=== PATIENT | male | born 1970 ===

== ENCOUNTER 2018-03-20 21:07 | Observation (INO) | payer OTHER ==
[2018-03-20] MEDS ORDERED: Aspirin 325 mg EC Tablets PO STA ×2 (21:37→23:55)
--- NOTE | 2018-03-20 21:37 | C.PDOC ---
History Of Present Illness Patient presents to the ER with a complaint of chest pain, left arm pain, and dizziness that began approximately at 1700 at while at work. Patient reports the pain is dull, aching, pressure, tightness; patient states the pain eased a bit but then he felt he was going to pass out and got diaphoretic which prompted visit. Denies fever, chills, nausea, or vomiting. Time Seen by Provider: 03/20/18 21:36 Chief Complaint (Nursing): Chest Pain History Per: Patient History/Exam Limitations: no limitations Onset/Duration Of Symptoms: Hrs Current Symptoms Are (Timing): Still Present Severity: Moderate Pain Scale Rating Of: 4 Quality: Dull, Aching, Tightness, Pressure Associated Symptoms: Diaphoresis, Other (Left arm pain). denies: Nausea, Dyspnea, Syncope Modifying Factors: None Exacerbating Factors: None Alleviating Factors: None Recent travel outside of the [place]: No Additional History Per: Family Past Medical History Reviewed: Historical Data, Nursing Documentation, Vital Signs Vital Signs: Last Vital Signs Temp 98.5 F 03/20/18 21:12 Pulse 69 03/20/18 21:12 Resp 12 03/20/18 21:12 BP 129/85 03/20/18 21:12 Pulse Ox 100 03/20/18 21:59 - Medical History PMH: Asthma Family History: States: No Known Family Hx - Social History Hx Alcohol Use: No (former drinker) Hx Substance Use: Yes Review Of Systems Constitutional: Positive for: Sweats. Negative for: Fever, Chills Cardiovascular: Positive for: Chest Pain Respiratory: Negative for: Shortness of Breath Gastrointestinal: Negative for: Nausea, Vomiting Musculoskeletal: Positive for: Arm Pain (Left) Skin: Negative for: Rash Neurological: Positive for: Dizziness Psych: Negative for: Anxiety Physical Exam - Physical Exam Appears: Non-toxic Skin: Warm, Dry Head: Normacephalic Eye(s): bilateral: Normal Inspection Oral Mucosa: Moist Neck: Supple Chest: Symmetrical, No Tenderness Cardiovascular: Rhythm Regular Respiratory: No Rales, No Rhonchi, No Wheezing Gastrointestinal/Abdominal: Soft, No Tenderness Back: Normal Inspection Extremity: Normal ROM Extremity: Bilateral: Atraumatic Pulses: Left Dorsalis Pedis: Normal, Right Dorsalis Pedis: Normal Neurological/Psych: Oriented x3 Gait: Steady ED Course And Treatment - Laboratory Results Result Diagrams: 03/20/18 21:41 03/20/18 21:41 ECG: Interpreted By Me, Viewed By Me ECG Rhythm: Sinus Rhythm (61), Nonspecific Changes O2 Sat by Pulse Oximetry: 100 (Room air) Pulse Ox Interpretation: Normal Progress Note: EKG, blood work, and CXR ordered. Aspirin administered. Disposition Discussed With Dr.: Marie Peacock Comment: accepted the pt on his service and took over the care at 11:43PM Doctor Will See Patient In The: Hospital Counseled Patient/Family Regarding: Studies Performed, Diagnosis - Disposition Disposition: HOSPITALIZED Disposition Time: 21:37 Condition: FAIR Forms: [employer] ([place]) - POA Present On Arrival: None - Clinical Impression Clinical Impression: Chest pain - Scribe Statement The provider has reviewed the documentation as recorded by the Scribe [place] All medical record entries made by the Scribe were at my direction and personally dictated by me. I have reviewed the chart and agree that the record accurately reflects my personal performance of the history, physical exam, medical decision making, and the department course for this patient. I have also personally directed, reviewed, and agree with the discharge instructions and disposition. Decision To Admit - Pt Status Changed To: Hospital Disposition Of: Observation - . Bed Request Type: Telemetry Admitting Physician: Marie Peacock Patient Diagnosis: Chest pain
[2018-03-20 21:47] LABS: BASO # 0.1 K/uL (0.0-0.2); BASO % 1.1 % (0.0-2.0); EOS # 0.1 K/uL (0.0-0.7); EOS % 1.4 % (0.0-4.0); HEMOGLOBIN 14.8 g/dL (12.0-18.0); LYMPH # 2.9 K/uL (1.0-4.3); LYMPH % 40.9 % (20.0-40.0); MEAN CELL VOLUME 90.1 fL (80.0-94.0); MEAN CORPUSCULAR HEMOGLOBIN 30.8 pg (27.0-31.0); MEAN CORPUSCULAR HGB CONC 34.1 g/dL (33.0-37.0); MEAN PLATELET VOLUME 7.5 fL (7.2-11.7); MONO # 0.3 K/uL (0.0-0.8); MONO % 3.8 % (0.0-10.0); NEUT # 3.8 K/uL (1.8-7.0); NEUT % 52.8 % (50.0-75.0); NRBC % 0.1 % (0.0-2.0); RBC 4.81 Mil/uL (4.40-5.90); RED CELL DISTRIBUTION WIDTH 12.2 % (11.5-14.5); WHITE BLOOD COUNT 7.1 K/uL (4.8-10.8)
[2018-03-20 21:56] LABS: INR 1.1
[2018-03-20 21:58] LABS: ALB/GLOB RATIO 1.2 (1.0-2.1); ALBUMIN 4.2 g/dL (3.5-5.0); ALT/SGPT 35 U/L (21-72); AST/SGOT 30 U/L (17-59); BLOOD UREA NITROGEN 19 mg/dL (9-20); CALCIUM 9.7 mg/dl (8.6-10.4); GFR AFRICAN-AMERICAN > 60; GFR NON-AFRICAN AMERICAN > 60
[2018-03-20] MEDS ORDERED: Aspirin 325 mg EC Tablets PO ONE (22:02)
[2018-03-20] MEDS ORDERED: Enoxaparin 40 mg Syringe SC ONE (23:55)
[2018-03-21 00:25] LABS: SQUAMOUS EPITHIAL < 1 /hpf (0-5); URINE BILIRUBIN NEGATIVE (NEGATIVE); URINE BLOOD 1+ (NEGATIVE); URINE CLARITY Clear (Clear); URINE COLOR Yellow (YELLOW); URINE GLUCOSE (UA) NORMAL (Normal); URINE LEUKOCYTE ESTERASE NEG Leu/uL (Negative); URINE PROTEIN NEGATIVE (NEGATIVE); URINE UROBILINOGEN NORMAL mg/dL (0.2-1.0)
[2018-03-21 00:43] LABS: BARBITURATES, UR NEGATIVE (NEGATIVE); BENZODIAZEPINES, UR NEGATIVE (NEGATIVE); OPIATES, UR NEGATIVE (NEGATIVE); PHENCYCLIDINE, UR NEGATIVE (NEGATIVE)
[2018-03-21 07:19] LABS: CK-MB 1.82 ng/mL (0.0-3.38)
--- NOTE | 2018-03-21 09:23 | RAD ---
PROCEDURE: CHEST RADIOGRAPH, 1 VIEW HISTORY: chest pain COMPARISON: None available. FINDINGS: LUNGS: No acute pulmonary disease appreciable. PLEURA: No pneumothorax or pleural fluid seen. CARDIOVASCULAR: Normal. OSSEOUS STRUCTURES: No significant abnormalities. VISUALIZED UPPER ABDOMEN: Normal. OTHER FINDINGS: None. IMPRESSION: No acute cardiopulmonary disease appreciated.
[2018-03-21] MEDS ORDERED: Enoxaparin 40 mg Syringe SC SCH (10:00)
[2018-03-21] MEDS ORDERED: Metoprolol Succinate 50 mg XL Tab PO SCH (10:00)
[2018-03-21] MEDS ORDERED: Aspirin 325 mg EC Tablets PO SCH (10:00)
[2018-03-21 11:26] LABS: BASO # 0.1 K/uL (0.0-0.2); BASO % 0.9 % (0.0-2.0); EOS # 0.1 K/uL (0.0-0.7); EOS % 1.8 % (0.0-4.0); HEMOGLOBIN 15.1 g/dL (12.0-18.0); LYMPH # 2.6 K/uL (1.0-4.3); LYMPH % 39.2 % (20.0-40.0); MEAN CELL VOLUME 91.3 fL (80.0-94.0); MEAN CORPUSCULAR HGB CONC 33.9 g/dL (33.0-37.0); MEAN PLATELET VOLUME 7.9 fL (7.2-11.7); MONO # 0.4 K/uL (0.0-0.8); MONO % 6.6 % (0.0-10.0); NEUT # 3.5 K/uL (1.8-7.0); NEUT % 51.5 % (50.0-75.0); NRBC % 0.1 % (0.0-2.0); RBC 4.88 Mil/uL (4.40-5.90); RED CELL DISTRIBUTION WIDTH 12.3 % (11.5-14.5); WHITE BLOOD COUNT 6.7 K/uL (4.8-10.8)
[2018-03-21 11:41] LABS: ALB/GLOB RATIO 1.2 (1.0-2.1); ALBUMIN 3.9 g/dL (3.5-5.0); ALT/SGPT 34 U/L (21-72); AST/SGOT 35 U/L (17-59); BLOOD UREA NITROGEN 17 mg/dL (9-20); CALCIUM 9.7 mg/dl (8.6-10.4); GFR AFRICAN-AMERICAN > 60; GFR NON-AFRICAN AMERICAN > 60
[2018-03-21 14:00] LABS: CK-MB 1.54 ng/mL (0.0-3.38)
--- NOTE | 2018-03-21 14:24 | CP.PCM.HP ---
History of Present Illness - History of Present Illness History of Present Illness: COMPREHENSIVE HISTORY & PHYSICAL EXAM HPI WHILE AT WORK YESTERDAY PATIENT EXPERIENCED RETROSTERNAL CHEST PAIN RADIATING TO LEFT ARM AND NECK PATIENT BECAME DIAPHORETIC AND NAUSEOUS THE PAIN WAS DULL ACHING TO SHARP WITH NO RELATION TO RESPIRATION OR MOVEMENT NO HISTORY OF TRAUMA. THE PAIN WAS MODERATE IN INTENSITY. PATIENT PRESENTED TO [facility] THE ROUTINE WORKUP FOR CARDIAC WAS NEGATIVE PATIENT IS ADMITTED FOR FURTHER OBSERVATION. PATIENT HAS NO PREVIOUS HISTORY OF CHEST PAIN OR ANY HEART PROBLEM IN THE PAST. THERE IS NO ANY DEFINITE CARDIAC RISK FACTORS. PAST HIST. PERSONAL HIST: RECENTLY QUIT N Alcohol. HEAVY ALCOHOL IN PAST RECENTLY STOPPED Allergy N Travel_- . FAMILY HIST : ROS : Constitutional: Negative for weight change, chills, night sweats, fatigue and usage of assist device. Eyes: Negative for redness, swelling, itching, discharge, vision changes, blurry vision, double vision, glaucoma, cataracts, Ears: Negative for hearing loss, ringing, , tinnitus, vertigo Nose: Negative for rhinorrhea, stuffiness, sniffing, itching, postnasal drip, discoloration, nasal congestion and epistaxis. Throat: Negative for throat clearing, sore throat, hoarseness, difficulty swallowing and difficulty speaking. Respiratory: Negative for cough, , sputum production, chest tightness, wheezing, pleuritic chest pain ,daytime somnolence, chronic cough, hemoptysis, snoring at night, Cardiovascular: Negative, Edema of legs, leg cramps, angina, claudication, , irregular heartbeat, Neurology: Negative for irritability, muscle weakness, numbness and tingling, seizures, tremors, migraines, slurred speech, syncope, memory loss, mood changes , recurrent headaches Gastrointestinal: Negative for difficulty swallowing, diarrhea, constipation, black stools, rectal bleeding, nausea, flatulence, reflux, poor appetite, changes in bowel habits, abdominal pain Genitourinary: Negative for frequent urination, hematuria, discharge, incontinence, urinary retention, frequent UTI, Psychiatric: Negative for depression, anxiety/panic, suicidal tendencies, Musculoskeletal: Negative for swollen joints, back pain, , neck pain, morning stiffness of joints, . Skin: Negative for rash, ulcers, itching, dry skin and pigmented lesions. P/E: Constitutional: Appears stated age and in no apparent distress. Head: Normocephalic. Ears: External ear canals patent without inflammation. Tympanic membranes intact with normal light reflex and landmark. Eyes: Pupils are central, bilaterally equal, symmetrical and reacts to light with normal movements and no icterus or pallor. Nose: External nares are patent. Mucosa is pink Mouth-Throat: Good general appearance and condition. No post-pharyngeal/oropharyngeal erythema and tonsillar hypertrophy. Good dental hygiene. Neck-Lymphatic: Neck is supple with normal ROM, no thyromegaly, lymph nodes or masses. JVD is normal with no carotid bruit. Lungs: Clear to percussion and auscultation with bilateral normal air entry. Cardiovascular: S1 and S2 are normal with no murmurs, gallops and rub. GI Exam: No hepatomegaly. Abdomen is soft and non-tender. No Organomegaly , masses or hernias are evident and bowel sounds are normal and active. Neurology: Higher function and all cranial nerves intact, with no gross motor or sensory deficit. Superficial and deep reflexes are normal with downwards planters. No cerebellar deficit with normal gait. Musculoskeletal: No tender spots with normal curvature of the spine with no swelling or restricted ROM of the small and large joints. Extremities: Homans sign absent. Intact pulses with no pitting edema, calf tenderness or skin color changes. Skin: No rash, eruptions or abnormal skin pigmentation LAB/RADIOLOGY: ASSESMENT : POSSIBLE ACUTE CORONARY SYNDROME WITH CORONARY ARTERY DISEASE. RULE OUT GASTROESOPHAGEAL REFLUX PLAN: COMPLETE CARDIAC WORKUP. Present on Admission - Present on Admission Any Indicators Present on Admission: No Past Patient History - Past Medical History & Family History Past Medical History?: Yes - Past Social History Smoking Status: Former Smoker - CARDIAC Hx Cardiac Disorders: No - PULMONARY Hx Asthma: Yes - NEUROLOGICAL Other/Comment: Headache - HEENT Hx HEENT Problems: No - RENAL Hx Chronic Kidney Disease: No - ENDOCRINE/METABOLIC Hx Endocrine Disorders: No - HEMATOLOGICAL/ONCOLOGICAL Hx Blood Disorders: No - INTEGUMENTARY Hx Dermatological Problems: No - MUSCULOSKELETAL/RHEUMATOLOGICAL Hx Musculoskeletal Disorders: No - GASTROINTESTINAL Hx Gastrointestinal Disorders: No - GENITOURINARY/GYNECOLOGICAL Hx Genitourinary Disorders: No - PSYCHIATRIC Hx Substance Use: Yes Other/Comment: [place]/Marijuana - SURGICAL HISTORY Other/Comment: Knee Surgery. - ANESTHESIA Hx Anesthesia: Yes Hx Anesthesia Reactions: No Hx Malignant Hyperthermia: No Meds Allergies/Adverse Reactions: Allergies Allergy/AdvReac Type Severity Reaction Status Date / Time No Known Allergies Allergy Verified 03/20/18 21:14 Results - Vital Signs Recent Vital Signs: Last Vital Signs Temp 97.6 F 03/21/18 08:00 Pulse 52 L 03/21/18 13:17 Resp 18 03/21/18 08:00 BP 117/69 03/21/18 08:00 Pulse Ox 98 03/21/18 13:00 - Labs Result Diagrams: 03/21/18 11:18 03/21/18 11:18 Labs: Laboratory Results - last 24 hr 03/20/18 03/20/18 03/20/18 21:41 21:41 21:41 WBC 7.1 RBC 4.81 Hgb 14.8 Hct 43.3 MCV 90.1 MCH 30.8 MCHC 34.1 RDW 12.2 Plt Count 250 MPV 7.5 Neut % (Auto) 52.8 Lymph % (Auto) 40.9 H [place] % (Auto) 3.8 Eos % (Auto) 1.4 Baso % (Auto) 1.1 Neut # (Auto) 3.8 Lymph # (Auto) 2.9 [place] # (Auto) 0.3 Eos # (Auto) 0.1 Baso # (Auto) 0.1 PT 12.0 INR 1.1 APTT 32 Sodium 143 Potassium 4.1 Chloride 105 Carbon Dioxide 26 Anion Gap 16 BUN 19 Creatinine 0.9 Est GFR ( Amer) > 60 Est GFR (Non-Af Amer) > 60 Random Glucose 100 Calcium 9.7 Total Bilirubin 1.1 AST 30 ALT 35 Alkaline Phosphatase 71 Total Creatine Kinase CK-MB (Mass) Troponin I < 0.0120 Total Protein 7.5 Albumin 4.2 Globulin 3.4 Albumin/Globulin Ratio 1.2 Urine Color Urine Clarity Urine pH Ur Specific [place] Urine Protein Urine Glucose (UA) Urine Ketones Urine Blood Urine Nitrate Urine Bilirubin Urine Urobilinogen Ur Leukocyte Esterase Urine WBC (Auto) Urine RBC (Auto) Ur Squamous Epith Cells Urine Opiates Screen Urine Methadone Screen Ur Barbiturates Screen Ur Phencyclidine Scrn Ur Amphetamines Screen U Benzodiazepines Scrn U Oth Cocaine Metabols U Cannabinoids Screen 03/21/18 03/21/18 03/21/18 00:18 00:18 06:45 WBC RBC Hgb Hct MCV MCH MCHC RDW Plt Count MPV Neut % (Auto) Lymph % (Auto) [place] % (Auto) Eos % (Auto) Baso % (Auto) Neut # (Auto) Lymph # (Auto) [place] # (Auto) Eos # (Auto) Baso # (Auto) PT INR APTT Sodium Potassium Chloride Carbon Dioxide Anion Gap BUN Creatinine Est GFR ( Amer) Est GFR (Non-Af Amer) Random Glucose Calcium Total Bilirubin AST ALT Alkaline Phosphatase Total Creatine Kinase 143 CK-MB (Mass) 1.82 Troponin I < 0.0120 Total Protein Albumin Globulin Albumin/Globulin Ratio Urine Color Yellow Urine Clarity Clear Urine pH 6.0 Ur Specific [place] 1.017 Urine Protein Negative Urine Glucose (UA) Normal Urine Ketones Negative Urine Blood 1+ H Urine Nitrate Negative Urine Bilirubin Negative Urine Urobilinogen Normal Ur Leukocyte Esterase Neg Urine WBC (Auto) < 1 Urine RBC (Auto) 11 H Ur Squamous Epith Cells < 1 Urine Opiates Screen Negative Urine Methadone Screen Negative Ur Barbiturates Screen Negative Ur Phencyclidine Scrn Negative Ur Amphetamines Screen Negative U Benzodiazepines Scrn Negative U Oth Cocaine Metabols Positive H U Cannabinoids Screen Positive H 03/21/18 03/21/18 03/21/18 11:18 11:18 13:22 WBC 6.7 RBC 4.88 Hgb 15.1 Hct 44.5 MCV 91.3 MCH 31.0 MCHC 33.9 RDW 12.3 Plt Count 221 MPV 7.9 Neut % (Auto) 51.5 Lymph % (Auto) 39.2 [place] % (Auto) 6.6 Eos % (Auto) 1.8 Baso % (Auto) 0.9 Neut # (Auto) 3.5 Lymph # (Auto) 2.6 [place] # (Auto) 0.4 Eos # (Auto) 0.1 Baso # (Auto) 0.1 PT INR APTT Sodium 142 Potassium 3.8 Chloride 103 Carbon Dioxide 29 Anion Gap 14 BUN 17 Creatinine 0.9 Est GFR ( Amer) > 60 Est GFR (Non-Af Amer) > 60 Random Glucose 75 Calcium 9.7 Total Bilirubin 1.3 AST 35 ALT 34 Alkaline Phosphatase 68 Total Creatine Kinase 132 CK-MB (Mass) 1.54 Troponin I < 0.0120 Total Protein 7.3 Albumin 3.9 Globulin 3.3 Albumin/Globulin Ratio 1.2 Urine Color Urine Clarity Urine pH Ur Specific [place] Urine Protein Urine Glucose (UA) Urine Ketones Urine Blood Urine Nitrate Urine Bilirubin Urine Urobilinogen Ur Leukocyte Esterase Urine WBC (Auto) Urine RBC (Auto) Ur Squamous Epith Cells Urine Opiates Screen Urine Methadone Screen Ur Barbiturates Screen Ur Phencyclidine Scrn Ur Amphetamines Screen U Benzodiazepines Scrn U Oth Cocaine Metabols U Cannabinoids Screen
--- NOTE | 2018-03-21 14:31 | CARD ---
APPROVED REPORT EXAM: Two-dimensional and M-mode echocardiogram with Doppler and color Doppler. Other Information Quality : GoodRhythm : INDICATION Dizziness and Vertigo Chest Pain 2D DIMENSIONS IVSd0.8 (0.7-1.1cm)LVDd5.4 (3.9-5.9cm) PWd0.8 (0.7-1.1cm)LVDs3.4 (2.5-4.0cm) FS (%) 37.4 %LVEF (%)66.9 (>50%) M-Mode DIMENSIONS Left Atrium (MM)3.76 (2.5-4.0cm)Aortic Root3.59 (2.2-3.7cm) Aortic Cusp Exc.2.48 (1.5-2.0cm) Mitral Valve MV E Iiokjwbb35.8cm/sMV A Kpnsftwn94.3cm/sE/A ratio1.1 TDI E/Lateral E'0.0E/Medial E'0.0 Tricuspid Valve TR Peak [id number]/sTR Peak [id number] LEFT VENTRICLE The left ventricle is normal size. There is normal left ventricular wall thickness. The left ventricular function is normal. The left ventricular ejection fraction is within the normal range. No regional wall motion abnormalities noted. The left ventricular diastolic function is normal. No left ventricle thrombus noted on this study. There is no ventricular septal defect visualized. There is no left ventricular aneurysm. There is no mass noted in the left ventricle. RIGHT VENTRICLE The right ventricle is normal size. There is normal right ventricular wall thickness. The right ventricular systolic function is normal. ATRIA The left atrium size is normal. The right atrium size is normal. The interatrial septum is intact with no evidence for an atrial septal defect. AORTIC VALVE The aortic valve is normal in structure and function. No aortic regurgitation is present. There is no aortic valvular stenosis. There is no aortic valvular vegetation. MITRAL VALVE The mitral valve is normal in structure and function. There is no evidence of mitral valve prolapse. There is no mitral valve stenosis. Mitral regurgitation is mild. TRICUSPID VALVE The tricuspid valve is normal in structure and function. There is mild tricuspid regurgitation. Right ventricular systolic pressure is estimated at less than 30 mmHg. There is no tricuspid valve prolapse or vegetation. There is no tricuspid valve stenosis. PULMONIC VALVE The pulmonary valve is normal in structure and function. There is no pulmonic valvular regurgitation. There is no pulmonic valvular stenosis. GREAT VESSELS The aortic root is normal in size. The ascending aorta is normal in size. The pulmonary artery is normal. The IVC is normal in size and collapses >50% with inspiration. PERICARDIAL EFFUSION The pericardium appears normal. There is no pleural effusion. <Conclusion> The left ventricular function is normal. The left ventricular ejection fraction is within the normal range. No regional wall motion abnormalities noted. Mitral regurgitation is mild.
[2018-03-21 17:14] VITALS: BP 119/75; PULSE 53; RESP 20; TEMP 98.4; O2SAT 99
[2018-03-22] MEDS ORDERED: Pneumococcal 23-Valent Vaccine IM ONE (10:00)
--- NOTE | 2018-03-22 15:37 | CP.PCM.DIS ---
Provider - Provider Date of Admission: 03/20/18 23:42 Attending physician: Marie Peacock MD Time Spent in preparation of Discharge (in minutes): 45 Hospital Course - Lab Results Lab Results: Most Recent Lab Values WBC 6.7 K/uL (4.8-10.8) 03/21/18 11:18 RBC 4.88 Mil/uL (4.40-5.90) 03/21/18 11:18 Hgb 15.1 g/dL (12.0-18.0) 03/21/18 11:18 Hct 44.5 % (35.0-51.0) 03/21/18 11:18 MCV 91.3 fL (80.0-94.0) 03/21/18 11:18 MCH 31.0 pg (27.0-31.0) 03/21/18 11:18 MCHC 33.9 g/dL (33.0-37.0) 03/21/18 11:18 RDW 12.3 % (11.5-14.5) 03/21/18 11:18 Plt Count 221 K/uL (130-400) 03/21/18 11:18 MPV 7.9 fL (7.2-11.7) 03/21/18 11:18 Neut % (Auto) 51.5 % (50.0-75.0) 03/21/18 11:18 Lymph % (Auto) 39.2 % (20.0-40.0) 03/21/18 11:18 [place] % (Auto) 6.6 % (0.0-10.0) 03/21/18 11:18 Eos % (Auto) 1.8 % (0.0-4.0) 03/21/18 11:18 Baso % (Auto) 0.9 % (0.0-2.0) 03/21/18:18 Neut # (Auto) 3.5 K/uL (1.8-7.0) 03/21/18 11:18 Lymph # (Auto) 2.6 K/uL (1.0-4.3) 03/21/18 11:18 [place] # (Auto) 0.4 K/uL (0.0-0.8) 03/21/18 11:18 Eos # (Auto) 0.1 K/uL (0.0-0.7) 03/21/18 11:18 Baso # (Auto) 0.1 K/uL (0.0-0.2) 03/21/18 11:18 PT 12.0 SECONDS (9.7-12.2) 03/20/18 21:41 INR 1.1 03/20/18 21:41 APTT 32 SECONDS (21-34) 03/20/18 21:41 Sodium 142 mmol/L (132-148) 03/21/18 11:18 Potassium 3.8 mmol/L (3.6-5.2) 03/21/18 11:18 Chloride 103 mmol/L (98-107) 03/21/18 11:18 Carbon Dioxide 29 mmol/L (22-30) 03/21/18 11:18 Anion Gap 14 (10-20) 03/21/18 11:18 BUN 17 mg/dL (9-20) 03/21/18 11:18 Creatinine 0.9 mg/dL (0.8-1.5) 03/21/18 11:18 Est GFR ( Amer) > 60 03/21/18 11:18 Est GFR (Non-Af Amer) > 60 03/21/18 11:18 Random Glucose 75 mg/dL (75-110) 03/21/18 11:18 Calcium 9.7 mg/dl (8.6-10.4) 03/21/18 11:18 Total Bilirubin 1.3 mg/dL (0.2-1.3) 03/21/18 11:18 AST 35 U/L (17-59) 03/21/18 11:18 ALT 34 U/L (21-72) 03/21/18 11:18 Alkaline Phosphatase 68 U/L (38-126) 03/21/18 11:18 Total Creatine Kinase 132 U/L (55-170) 03/21/18 13:22 CK-MB (Mass) 1.54 ng/mL (0.0-3.38) 03/21/18 13:22 Troponin I < 0.0120 ng/mL (0.00-0.120) 03/21/18 13:22 Total Protein 7.3 g/dL (6.3-8.3) 03/21/18:18 Albumin 3.9 g/dL (3.5-5.0) 03/21/18 11:18 Globulin 3.3 gm/dL (2.2-3.9) 03/21/18 11:18 Albumin/Globulin Ratio 1.2 (1.0-2.1) 03/21/18 11:18 Urine Color Yellow (YELLOW) 03/21/18 00:18 Urine Clarity Clear (Clear) 03/21/18 00:18 Urine pH 6.0 (5.0-8.0) 03/21/18 00:18 Ur Specific [place] 1.017 (1.003-1.030) 03/21/18 00:18 Urine Protein Negative mg/dL (NEGATIVE) 03/21/18 00:18 Urine Glucose (UA) Normal mg/dL (Normal) 03/21/18 00:18 Urine Ketones Negative mg/dL (NEGATIVE) 03/21/18 00:18 Urine Blood 1+ (NEGATIVE) H 03/21/18 00:18 Urine Nitrate Negative (NEGATIVE) 03/21/18 00:18 Urine Bilirubin Negative (NEGATIVE) 03/21/18 00:18 Urine Urobilinogen Normal mg/dL (0.2-1.0) 03/21/18 00:18 Ur Leukocyte Esterase Neg [place]/uL (Negative) 03/21/18 00:18 Urine WBC (Auto) < 1 /hpf (0-5) 03/21/18 00:18 Urine RBC (Auto) 11 /hpf (0-3) H 03/21/18 00:18 Ur Squamous Epith Cells < 1 /hpf (0-5) 03/21/18 00:18 Urine Opiates Screen Negative (NEGATIVE) 03/21/18 00:18 Urine Methadone Screen Negative (NEGATIVE) 03/21/18 00:18 Ur Barbiturates Screen Negative (NEGATIVE) 03/21/18 00:18 Ur Phencyclidine Scrn Negative (NEGATIVE) 03/21/18 00:18 Ur Amphetamines Screen Negative (NEGATIVE) 03/21/18 00:18 U Benzodiazepines Scrn Negative (NEGATIVE) 03/21/18 00:18 U Oth Cocaine Metabols Positive (NEGATIVE) H 03/21/18 00:18 U Cannabinoids Screen Positive (NEGATIVE) H 03/21/18 00:18 - Hospital Course Hospital Course: WHILE AT WORK YESTERDAY PATIENT EXPERIENCED RETROSTERNAL CHEST PAIN RADIATING TO LEFT ARM AND NECK PATIENT BECAME DIAPHORETIC AND NAUSEOUS THE PAIN WAS DULL ACHING TO SHARP WITH NO RELATION TO RESPIRATION OR MOVEMENT NO HISTORY OF TRAUMA. THE PAIN WAS MODERATE IN INTENSITY. PATIENT PRESENTED TO [facility] THE ROUTINE WORKUP FOR CARDIAC WAS NEGATIVE PATIENT IS ADMITTED FOR FURTHER OBSERVATION. PATIENT HAS NO PREVIOUS HISTORY OF CHEST PAIN OR ANY HEART PROBLEM IN THE PAST. THERE IS NO ANY DEFINITE CARDIAC RISK FACTORS. 3 sets of cardiac enzymes were negative. EKG showed sinus bradycardia in 46-[address]-T changes. Echocardiogram showed normal left ejection fraction with no wall motion abnormality. On further inquiry patient states that 2 weeks ago patient had outpatient stress test. According to the the report was reported as normal. On further inquiry patient stated that he had smoked marijuana before he had chest pain. Currently patient does not have any risk factors for any coronary artery disease as all noninvasive workup has been negative including the stress test. Patient also had a Holter done outpatient which showed only sinus bradycardia. Patient will be discharged patient was given instructions if there is any chest pain to return back to the hospital. Avoid any recreational drug use. Patient will see his primary doctor on Friday for further workup. Patient will need thyroid function tests in view of the sinus bradycardia Discharge Plan - Follow Up Plan Condition: FAIR Disposition: HOME/ ROUTINE Instructions: Heart Healthy Diet, Chest Pain (DC), Relaxation Techniques, Stress
--- NOTE | 2018-03-23 12:13 | CARD ---
APPROVED REPORT EKG Measurement Heart [id number] <Conclusion> Sinus bradycardia Otherwise normal ECG
== END 2018-03-21 21:09 | disposition home or self-care (01) ==
LOC: C.ER 21:07 → C.6T 23:42
PROVIDERS: ADMIT Internal Medicine Cardiovascular Disease; ATTEND Internal Medicine Cardiovascular Disease
DX: R07.9 Chest pain, unspecified (principal); J45.909 Unspecified asthma, uncomplicated; R00.1 Bradycardia, unspecified; F12.90 Cannabis use, unspecified, uncomplicated
CPT/HCPCS: 36415; 71045; 80053; 80324; 80345; 80346; 80349; 80353; 80358; 80361; 81001; 83992; 84484; 85025; 85610; 85730; 93306; 96372; 99285; G0378; J1650